=== PATIENT | female | born 1985 | race Two or more races ===

== ENCOUNTER 2022-12-14 03:26 | Inpatient (IN) | payer OTHER ==
[~2022-12-14] VITALS: Ht 165.1 cm; Wt 86.0 kg
[2022-12-14] MEDS ORDERED: SODIUM CHLORIDE 0.9% 1,000 ML IV ONE ×3 (04:00→07:00)
[2022-12-14] MEDS ORDERED: fentaNYL CITRATE 100 MCG/2 ML VL IV ONE ×2 (04:00→04:45)
[2022-12-14] MEDS ORDERED: ONDANSETRON HCL 4 MG/2 ML VIAL IV ONE (04:00)
[2022-12-14 04:11] LABS: Basophils # (auto) 0 10 ^3/uL (0-0.2); Lymphocytes # (auto) 1.9 10 ^3/uL (0.4-5.4); Monocytes # (auto) 0.5 10 ^3/uL (0-1.3); Monocytes % (auto) 6.4 % (0.0-12.0)
[2022-12-14 04:14] LABS: Basophils % (auto) 0.3 % (0.0-2.0); Eosinophils # (auto) 0.2 10 ^3/uL (0-0.8); Eosinophils % (auto) 2.2 % (0.0-7.0); Hematocrit 36.7 % (36.0-46.0); Lymphocytes % (auto) 25.4 % (10.0-50.0); Mean Corpuscular Hemoglobin 26.1 pg (28.0-32.0); Mean Corpuscular Hgb Conc. 32.6 g/dL (32.0-36.0); Mean Corpuscular Volume 79.9 fL (80.0-100.0); Neutrophils # (auto) 4.9 10 ^3/uL (1.6-8.6); Neutrophils % (auto) 65.7 % (37.0-80.0); Nucleated Red Blood Cells % 0.1 %; Red Blood Cells 4.59 10^6/uL (4.0-5.20); White Blood Cell 7.4 10^3/uL (4.4-10.8)
[2022-12-14 04:22] VITALS: PULSE 73; RESP 19; O2SAT 98
[2022-12-14 04:33] LABS: Lactic Acid w/Reflex 3.1 mmol/L (0.4-2.0)
[2022-12-14 04:34] LABS: Alanine Aminotransferase 25 U/L (7-40); Albumin 4.8 g/dL (3.2-4.8); Alkaline Phosphatase 74 U/L (46-116); Anion Gap 8 (5-15); Aspartate Aminotransferase 16 U/L (13-40); BUN/Creatinine Ratio 16.4 (10.0-20.0); Bilirubin, Total 0.2 mg/dL (0.2-1.0); Blood Urea Nitrogen 12 mg/dL (9-23); Calcium 8.9 mg/dL (8.7-10.4); Carbon Dioxide 23 mmol/L (20-30); Chloride 105 mmol/L (98-107); Glucose 244 mg/dL (74-106); Lipase 49 U/L (12-53); Potassium 3.9 mmol/L (3.5-5.1); Sodium 136 mmol/L (136-145)
[2022-12-14 04:35] LABS: Total Protein 7.8 g/dL (5.7-8.2)
[2022-12-14 05:42] LABS: Urine Bacteria NONE SEEN /hpf (None Seen); Urine Blood Negative /uL (Negative); Urine Clarity Clear (Clear); Urine Color Yellow (Yellow); Urine Mucus FEW (None Seen); Urine Protein, UAD 1+ (Negative); Urine Specific Gravity 1.031 (1.001-1.035); Urine Urobilinogen Normal (Negative); Urine WBC 3 /hpf (0 - 5); Urine pH 5.5 (5.0-8.0)
[2022-12-14 05:53] LABS: Amphetamine Screen, Urine Neg (NEGATIVE); Barbiturate Scree,Urine Neg (NEGATIVE); Benzodiazephine Screen, Urine Neg (NEGATIVE)
[2022-12-14 05:54] LABS: Cannabinoid Screen, Urine Neg (NEGATIVE); Cocaine Screen, Urine Neg (NEGATIVE); Opiate Scree,Urine Neg (NEGATIVE); Phencyclidine Screen, Urine Neg (NEGATIVE)
[2022-12-14] MEDS ORDERED: TAMSULOSIN HYDROCHLORIDE 0.4 MG CAP PO ONE (06:15)
[2022-12-14] MEDS ORDERED: MORPHINE SULFATE 4 MG/ML SYR/VIAL IV ONE (06:30)
[2022-12-14 08:00] VITALS: PULSE 69; RESP 20; O2SAT 100
[2022-12-14] MEDS ORDERED: ONDANSETRON HCL 4 MG/2 ML VIAL IV PRN (09:30)
[2022-12-14] MEDS ORDERED: DOCUSATE SOD 100 MG CAP PO PRN (09:30)
[2022-12-14] MEDS ORDERED: hydrALAZINE HCL 20 MG/ML VL IV PRN (09:30)
[2022-12-14] MEDS ORDERED: DEXTROSE (50%) 50ML SYRG IV PRN (09:30)
[2022-12-14] MEDS ORDERED: PROMETHAZINE HCL 25 MG/ML 1ML IV ONE (09:45)
[2022-12-14] MEDS: SODIUM CHLORIDE 0.9% 1,000 ML IV SCH ×2 (10:03→17:08)
[2022-12-14 10:38] VITALS: BP 135/85; PULSE 74; RESP 18; TEMP 98.1; O2SAT 100
[2022-12-14] MEDS ORDERED: METF-370 PO (11:03)
[2022-12-14] MEDS: MORPHINE SULFATE INJ 2 MG/ml SYRG IV PRN ×3 (11:59→21:58)
[2022-12-14] MEDS: ACCU-CHEK COMFORT CURVE STRIP VI SCH ×3 (11:59→22:01)
[2022-12-14] MEDS: InsuLIN REG 1unit/0.01ml Soln (100units/ml) SC SCH ×3 (12:02→22:00)
[2022-12-14 16:59] VITALS: BP 132/76; PULSE 77; RESP 20; TEMP 98.9; O2SAT 97
[2022-12-14 22:00] VITALS: BP 135/74; PULSE 89; RESP 22; TEMP 98.9; O2SAT 99
[2022-12-15] MEDS: MORPHINE SULFATE INJ 2 MG/ml SYRG IV PRN ×3 (04:30→19:04)
[2022-12-15] MEDS: SODIUM CHLORIDE 0.9% 1,000 ML IV SCH ×3 (04:34→18:50)
[2022-12-15 05:00] VITALS: BP 147/86; PULSE 92; RESP 22; TEMP 98.4; O2SAT 98
[2022-12-15 06:01] LABS: Basophils # (auto) 0 10 ^3/uL (0-0.2); Basophils % (auto) 0.2 % (0.0-2.0); Eosinophils # (auto) 0.1 10 ^3/uL (0-0.8); Eosinophils % (auto) 0.6 % (0.0-7.0); Hemoglobin 10.9 g/dL (12.2-16.2)
[2022-12-15 06:04] LABS: Hematocrit 32.8 % (36.0-46.0); Lymphocytes # (auto) 2.2 10 ^3/uL (0.4-5.4); Lymphocytes % (auto) 23.7 % (10.0-50.0); Mean Corpuscular Hemoglobin 26.4 pg (28.0-32.0); Mean Corpuscular Hgb Conc. 33.2 g/dL (32.0-36.0); Mean Corpuscular Volume 79.6 fL (80.0-100.0); Monocytes # (auto) 0.9 10 ^3/uL (0-1.3); Monocytes % (auto) 10.2 % (0.0-12.0); Neutrophils % (auto) 65.3 % (37.0-80.0); Red Blood Cells 4.12 10^6/uL (4.0-5.20); Red Cell Distribution Width 15.1 % (11.8-14.3); White Blood Cell 9.2 10^3/uL (4.4-10.8)
[2022-12-15] MEDS: ACCU-CHEK COMFORT CURVE STRIP VI SCH ×4 (06:08→22:00)
[2022-12-15] MEDS: InsuLIN REG 1unit/0.01ml Soln (100units/ml) SC SCH ×4 (06:09→22:00)
[2022-12-15 06:25] LABS: Alanine Aminotransferase 28 U/L (7-40); Albumin 3.8 g/dL (3.2-4.8); Alkaline Phosphatase 68 U/L (46-116); Anion Gap 6 (5-15); Aspartate Aminotransferase 25 U/L (13-40); BUN/Creatinine Ratio 7.5 (10.0-20.0); Bilirubin, Total 0.4 mg/dL (0.2-1.0); Blood Urea Nitrogen 6 mg/dL (9-23); Calcium 8.1 mg/dL (8.7-10.4); Carbon Dioxide 24 mmol/L (20-30); Chloride 107 mmol/L (98-107); Glucose 134 mg/dL (74-106); Potassium 3.5 mmol/L (3.5-5.1); Sodium 137 mmol/L (136-145); Total Protein 6.4 g/dL (5.7-8.2)
[2022-12-15 08:54] VITALS: BP 124/69; PULSE 74; RESP 16; TEMP 98.3; O2SAT 97
[2022-12-15] MEDS ORDERED: cefTRIAXone 1GM/50ML D5W 50 ML IV ONE (11:00)
[2022-12-15 12:45] VITALS: BP 134/77; PULSE 80; RESP 16; TEMP 98.5; O2SAT 99
[2022-12-15] MEDS: traMADol HCL 50 MG TAB PO PRN (13:58)
[2022-12-15 17:26] VITALS: BP 121/74; PULSE 94; RESP 20; TEMP 98.1; O2SAT 98
[2022-12-15] MEDS ORDERED: TAMSULOSIN HYDROCHLORIDE 0.4 MG CAP PO ONE (18:45)
[2022-12-15 23:32] VITALS: BP 120/77; PULSE 83; RESP 18; TEMP 98.4; O2SAT 97
[2022-12-16] MEDS: SODIUM CHLORIDE 0.9% 1,000 ML IV SCH ×3 (03:10→21:27)
[2022-12-16 05:08] VITALS: BP 116/73; PULSE 80; RESP 17; TEMP 98.8; O2SAT 96
[2022-12-16] MEDS: InsuLIN REG 1unit/0.01ml Soln (100units/ml) SC SCH ×4 (07:00→21:17)
[2022-12-16] MEDS: ACCU-CHEK COMFORT CURVE STRIP VI SCH ×4 (07:16→21:18)
[2022-12-16 08:50] VITALS: BP 104/82; PULSE 74; RESP 16; TEMP 98.5; O2SAT 98
[2022-12-16] MEDS: cefTRIAXone 1GM/50ML D5W 50 ML IV SCH (09:21)
[2022-12-16] MEDS ORDERED: IOHEXOL 300 MG/ML 100ML BOTTLE IJ ONE (09:41)
[2022-12-16 12:40] VITALS: BP 138/92; PULSE 84; RESP 16; TEMP 98.2; O2SAT 98
[2022-12-16 16:10] VITALS: BP 133/88; PULSE 87; RESP 16; TEMP 98; O2SAT 98
[2022-12-16] MEDS: traMADol HCL 50 MG TAB PO PRN (21:21)
[2022-12-16 22:00] VITALS: BP 132/87; PULSE 77; RESP 18; TEMP 98.3; O2SAT 100
[2022-12-17] MEDS: SODIUM CHLORIDE 0.9% 1,000 ML IV SCH ×2 (04:10→12:30)
[2022-12-17 05:00] VITALS: BP 96/58; PULSE 62; RESP 18; TEMP 98.5; O2SAT 95
[2022-12-17] MEDS: InsuLIN REG 1unit/0.01ml Soln (100units/ml) SC SCH ×2 (06:31→11:22)
[2022-12-17] MEDS: ACCU-CHEK COMFORT CURVE STRIP VI SCH ×2 (06:31→11:22)
[2022-12-17 08:40] VITALS: BP 132/90; PULSE 65; RESP 20; TEMP 98.3; O2SAT 98
[2022-12-17] MEDS: cefTRIAXone 1GM/50ML D5W 50 ML IV SCH (08:52)
[2022-12-17] MEDS ORDERED: METF-372 PO (12:17)
[2022-12-17] MEDS ORDERED: TRAM50TA2 PO (12:17)
[2022-12-17] MEDS ORDERED: CIPR-173 PO (12:17)
[2022-12-17 12:29] VITALS: TEMP 36.8
[2022-12-17 12:35] VITALS: BP 153/91; PULSE 69; RESP 19; TEMP 97.5; O2SAT 98
== END 2022-12-17 14:30 | disposition home or self-care (01) | DRG 463 ==
LOC: ER 03:26 → OVERFLOW 09:46 → WEST WING 10:15
PROVIDERS: ADMIT Nurse Practitioner Family; ATTEND Family Medicine
DX: N13.6 Pyonephrosis (principal); E87.21 Acute metabolic acidosis; I10 Essential (primary) hypertension; E86.0 Dehydration; K52.9 Noninfective gastroenteritis and colitis, unspecified; E11.9 Type 2 diabetes mellitus without complications; N20.0 Calculus of kidney; Z88.8 Allergy status to other drugs, medicaments and biological substances; Z90.49 Acquired absence of other specified parts of digestive tract
CPT/HCPCS: 36415; 74176; 74178; 76705; 76775; 76856; 80053; 80307; 81001; 81025; 82962; 83036; 83605; 83690; 84702; 85025; G0378; J0696; J1815; J2405

== ENCOUNTER 2024-10-09 22:18 | Emergency (ER) | payer MEDICAID ==
[~2024-10-09] VITALS: Ht 165.1 cm; Wt 83.0 kg
[~2024-10-09 22:18] MED LIST: AMLO1TAB22 PO; CIPR-173 PO; METF-370 PO; METF-372 PO; PANT40T PO; TRAM50TA2 PO
--- NOTE | 2024-10-09 22:28 | ED.PDOC ---
HPI (NEURO) HPI Comments PATIENT C/O A HEADACHE AND BILAT EAR PAIN X3 DAYS. PATIENT ALSO C/O NAUSEA AND VERTIGO. DENIES CHEST PAIN, DIFFICULTY BREATHING, FEVER, CHILLS, SLURRED SPEECH, BLURRED VISION, OR WORST HEADACHE OF HER LIFE. 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 Family History Family History: Unknown Social History Smoker: Non-Smoker Alcohol: Denies ETOH Use Drugs: Denies Drug Use Lives In: Home Constitutional: denies: chills, diaphoresis, fatigue, fever, malaise, sweats, weakness, others EENTM: reports: ear pain; denies: blurred vision, double vision, ear bleeding, ear discharge, ear drainage, ear ringing, eye pain, eye redness, hearing loss, mouth pain, mouth swelling, nasal discharge, nose bleeding, nose congestion, nose pain, photophobia, tearing, throat pain, throat swelling, voice changes, others Respiratory: denies: cough, hemoptysis, orthopnea, SOB at rest, shortness of breath, SOB with excertion, stridor, wheezing, others Cardiovascular: denies: chest pain, dizzy spells, diaphoresis, Dyspnea on exertion, edema, irregular heart beat, left arm pain, lightheadedness, palpitations, PND, syncope, others Gastrointestinal: reports: nausea, vomiting; denies: abdomen distended, abdominal pain, blood streaked bowels, constipated, diarrhea, dysphagia, difficulty swallowing, hematemesis, melena, poor appetite, poor fluid intake, rectal bleeding, rectal pain, others Genitourinary: denies: abnormal vagina bleeding, burning, dyspareunia, dysuria, flank pain, frequency, hematuria, incontinence, pain, , vagina discharge, urgency, others Neurological: denies: dizziness, fainting, headache, left sided numbness, left sided weakness, numbness, paresthesia, pre-existing deficit, right sided numbness, right sided weakness, seizure, speech problems, tingling, tremors, weakness, others Musculoskeletal: denies: back pain, gout, joint pain, joint swelling, muscle pain, muscle stiffness, neck pain, others Integumetry: denies: bruises, change in color, change in hair/nails, dryness, laceration, lesions, lumps, rash, wounds, others Allergic/Immunocompromised: denies: Difficulty Healing, Frequent Infections, Hives, Itching, others Hematologic/Lymphatic: denies: anemia, blood clots, easy bleeding, easy bruising, swollen glands, others Endocrine: denies: excessive hunger, excessive sweating, excessive thirst, excessive urination, flushing, intolerance to cold, intolerance to heat, unexplained weight gain, unexplained weight loss, others Psychiatric: denies: anxiety, bipolar disorder, depression, hopeless, panic disorder, schizophrenia, sleepless, suicidal, others Physical Exam General Appearance: No Apparent Distress, Normal HEENT: Normal ENT Inspection, Pharynx Normal, TMs Normal Neck: Full Range of Motion, Normal Respiratory: Lungs Clear, No Respiratory Distress, Normal Breath Sounds Cardiovascular: No Edema, No JVD, No Murmur, No Gallop, Normal Peripheral Pulses, Regular Rate/Rhythm Breast Exam: Deferred Gastrointestinal: No Organomegaly, Non Tender, No Pulsatile Mass, Normal Bowel Sounds, Soft Genitalia: Deferred Pelvic: Deferred Rectal: Deferred Extremities: Normal capillary refill, Normal inspection, Normal range of motion, Non-tender, No pedal edema Musculoskeletal : Apperance: Normal Neurologic: Alert, No Motor Deficits, Normal Affect, Normal Mood, No Sensory Deficits Cerebellar Function: Normal Reflexes: Normal Skin: Dry, Normal Color, Warm Lymphatic: No Adenopathy Was a procedure done? Was a procedure done?: No Differential Diagnosis (SZ) Seizure: N/A Headache: Cluster, Migraine X-Ray, Labs, Meds, VS Vital Signs Date Time Temp Pulse Resp B/P (MAP) Pulse Ox O2 Delivery O2 Flow Rate FiO2 10/10/24 01:14 98.6 82 18 153/91 (111) 97 98.6 10/10/24 01:14 82 18 98 Room Air 10/09/24 22:59 99.1 101 18 159/98 (118) 95 99.1 Current Medications Medications (Trade) Dose Ordered Sig/Stella Route Start Time Stop Time Status Last Admin Sodium Chloride 1,000 ml @ 1,000 mls/hr Q1H ONCE IV 10/09/24 22:30 10/09/24 23:29 DC 10/10/24 01:53 Prochlorperazine Edisylate (Compazine Inj) 5 mg ONCE ONCE IV 10/09/24 22:30 10/09/24 22:31 DC 10/10/24 01:59 Dexamethasone Sodium Phosphate (Decadron Injection) 10 mg ONCE ONCE IV 10/09/24 22:30 10/09/24 22:31 DC 10/10/24 01:59 X-Ray, Labs, Meds, VS Comment Patient given Compazine, NS 1000 mL bolus, and Decadron 10 mg IM reports improvement in pain requesting discharge at this time. Advised to rest increase p.o. fluids with electrolytes. [id number] Tylenol or Motrin or migraine Excedrin medication as needed for headache per labeled dosing instructions. Advised to follow up with her PCP in 2-3 days as necessary. Advised on ER return precautions patient indicates understanding and agrees with discharge plan of care. Time of 1ST Reevaluation: 22:27 Reevaluation 1ST: Unchanged Time of 2ND Reevaluation: 02:24 Reevaluation 2ND: Improved Patient Education/Counseling: Diagnosis, Treatment, Prognosis, Need For Follow Up Family Education/Counseling: Diagnosis, Treatment, Prognosis, Need For Follow Up Departure 1 Departure Time of Disposition: 02:23 Impression: Primary Impression: Headache Qualified Codes: R51.9 - Headache, unspecified Disposition: 01 HOME / SELF CARE / HOMELESS Condition: Stable Discharged With: Significant Other Critical Care Note Critical Care Time?: No Stability Stability form required: SARAHI Olguin Oct 09, 2024 22:28
[2024-10-10 01:14] VITALS: BP 153/91; PULSE 82; RESP 18; TEMP 98.6; O2SAT 98
[2024-10-10] MEDS: SODIUM CHLORIDE 0.9% 1,000 ML IV ONE (01:53)
[2024-10-10] MEDS: KETOROLAC TROMETH 30 MG/ML 1ML VIAL IV ONE (01:58)
[2024-10-10] MEDS: PROCHLORPERAZINE EDISYLATE 5 MG/ML 2ML VIAL IV ONE (01:59)
== END 2024-10-10 02:33 | disposition home or self-care (01) ==
LOC: ER 22:18
DX: R51.9 Headache, unspecified (principal); E11.9 Type 2 diabetes mellitus without complications; I10 Essential (primary) hypertension; Z90.49 Acquired absence of other specified parts of digestive tract
CPT/HCPCS: 96361; 96374; 96375; 99284; J0780; J1100; J7030